=== PATIENT | male | born 1995 | race Caucasian/White ===

== ENCOUNTER 2018-03-06 22:01 | Emergency (ER) | payer OTHER ==
[~2018-03-06] VITALS: Wt 71.3 kg
[2018-03-06] MEDS ORDERED: HYDROCODONE/APAP (10/325) TAB PO ONE (22:30)
[2018-03-06] MEDS ORDERED: DIPHTH/TET/ACEL PERTUSS (ADULT) 0.5 ML VIAL IM* ONE (22:30)
[2018-03-06] MEDS ORDERED: LIDOCAINE 1% (MDV) 20 ML INJ SC ONE (22:30)
--- NOTE | 2018-03-06 22:31 | ERD ---
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 Stated this happened 20 minutes prior to arrival here in the emergency department. 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 Denies headache, head injury, loss of consciousness, dizziness, neck pain, neck stiffness, throat pain, difficulty swallowing, difficulty breathing lying flat, shoulder pain, chest pain, back pain, abdominal pain, nausea, vomiting, constipation, diarrhea, urinary symptoms, loss of bowel and bladder control, numbness or tingling sensation, calf pain, recent travel, recent major surgery in the last 3 weeks, calf pain, recent long travel, recent exposure to any illness, recent antibiotic use in the last 3 months, fever, chills, seizures. Past medical history: Denies. Surgical history: Denies. Social: Denies smoking, use of alcoholic beverages, use of illegal drugs. ROS All systems reviewed and are negative except as per history of present illness. Medications Home Meds Active Scripts Ibuprofen* (Motrin*) 600 Mg Tab, 600 MG PO Q6H PRN for PAIN AND OR ELEVATED TEMP, #30 TAB Prov:PASILABAN,SINANAR F 03/06/18 Cephalexin* (Keflex*) 500 Mg Capsule, 500 MG PO BID for 5 Days, CAP Prov:PASILABAN,KLAR F 03/06/18 Allergies Allergies: Coded Allergies: No Known Allergy (Unverified , 03/06/18) PMhx/Soc Medical and Surgical Hx: pt denies Medical Hx, pt denies Surgical Hx Hx Alcohol Use: No Hx Substance Use: No Hx Tobacco Use: No Smoking Status: Never smoker Physical Exam Vitals Vital Signs Date Temp Pulse Resp B/P (MAP) Pulse Ox O2 O2 Flow FiO2 Time Delivery Rate 03/07/18 98.2 77 20 115/70 100 Room Air 00:55 (85) 03/06/18 98.2 71 19 119/65 100 22:09 (83) Physical Exam Const: No acute distress Head: Atraumatic Eyes: Normal Conjunctiva ENT: Normal External Ears, Nose and Mouth. Neck: Full range of motion. No meningismus. Resp: Clear to auscultation bilaterally Cardio: Regular rate and rhythm, no murmurs Abd: Soft, non tender, non distended. Normal bowel sounds Skin: No petechiae or rashes Back: No midline or flank tenderness Ext: No cyanosis, or edema. Right foot: Noted laceration on the medial area measuring approximately 4.2 cm in length. Bleeding is controlled. Right pedal pulses within normal limits. Has good and full range of motion of right toes. Capillary refill is on right lower extremity are less than 2 seconds. Right ankle is unremarkable. Right knee is unremarkable. Left lower extremity is unremarkable. Neur: Awake and alert. No neurological deficits. Psych: Normal Mood and Affect Results 24 hrs Current Medications Medications Dose Sig/Francine Start Time Status Last (Trade) Ordered Route PRN Stop Time Admin Dose Reason Admin Diphtheria/ 0.5 ml ONCE ONCE 03/06/18 DC 03/06/18 Tetanus/Acell IM* 22:30 22:34 Pertussis 03/06/18 (Adacel) 22:31 Lidocaine 20 ml ONCE ONCE 03/06/18 DC (Xylocaine SC 22:30 1% (Mdv) 20 03/06/18 ml) 22:31 1 tab ONCE ONCE 03/06/18 DC 03/06/18 Acetaminophen PO 22:30 22:33 / 03/06/18 Hydrocodone 22:31 Bitart ([place] (10/325)) Bacitracin 1 applic ONCE ONCE 03/07/18 DC (Bacitracin TOP 01:00 Oint (Ud)) 03/07/18 01:00 Procedures/MDM Diagnostic tests: X-ray of the right foot: Soft tissue defect and bandage medial forefoot. No radiopaque foreign body seen. Procedure: Laceration repair to right foot. Verbal consent was taken from the patient. Sterile technique observed. Betadine prep. Lidocaine 1% 3 cc subcu. Ethilon 3-0 x14 simple interrupted sutures. 4.2 cm after closure. Treatment: Adacel IM. [place] p.o. Bacitracin and dressing was applied by EMT. Re-evaluation: No neurovascular deficits prior to and after the application of dressing. Differential diagnosis I have low suspicion for open fracture, retained foreign body, hemorrhage. Final diagnosis: Laceration to right foot. Prescription: Keflex p.o. Motrin. Follow-up with PCP in the next 24-48 hours. Come back in 2 days for a wound check. Come back in 7-10 days for suture removal. Come back here in the [facility] department for any new symptoms or any worsening symptoms. All questions and concerns were answered. Patient and family members verbalized understanding and agreed with plan of care. Hemodynamically stable on discharge. Departure Diagnosis: Primary Impression: Laceration Additional Impression: Foot injury Condition: Stable Additional Instructions: Follow-up with PCP in the next 24-48 hours. Come back in 2 days for a wound check. Come back in 7-10 days for suture removal. Come back here in the emergency department for any new symptoms or any worsening symptoms. ANGLE BLANDON Mar 06, 2018 22:31
[2018-03-06] MEDS ORDERED: IBUP-1542 PO (23:44)
[2018-03-06] MEDS ORDERED: CEPH-443 PO (23:44)
[2018-03-07 00:55] VITALS: BP 115/70; PULSE 77; RESP 20
[2018-03-07] MEDS ORDERED: BACITRACIN 0.9 GM OINT TOP ONE (01:00)
== END 2018-03-07 00:56 | disposition home or self-care (01) ==
LOC: FTE 22:01
DX: S91.312A Laceration without foreign body, left foot, initial encounter (principal); W25.XXXA Contact with sharp glass, initial encounter; Y92.9 Unspecified place or not applicable
CPT/HCPCS: 12002; 73630; 90471; 90715; Z7502; Z7610